=== PATIENT | male | born 1965 | race African-American/Black ===

== ENCOUNTER 2017-09-12 10:29 | Emergency (ER) | payer OTHER, MEDICARE ==
[~2017-09-12] VITALS: Ht 172.7 cm; Wt 85.0 kg
[~2017-09-12 10:29] MED LIST: DIOVAN; LIPITOR; NORVASC
[2017-09-12 11:29] LABS: BASOPHILS % 1.5 % (0.0-2.0); HEMOGLOBIN. 11.9 g/dL (14.0-18.0); LYMPHOCYTES % 19.1 % (20.0-50.0); MEAN CORPUSCULAR HEMOGLOBIN 33.8 pg (28.0-32.0); MEAN CORPUSCULAR VOLUME 96.6 fL (80.0-94.0); MEAN PLATELET VOLUME 7.6 fl (7.4-10.4); MONOCYTES % 7.3 % (2.0-8.0); NEUTROPHILS % 71.1 % (40.0-76.0); PLATELET 200 x1000/uL (130-400); RED BLOOD CELL COUNT 3.52 mill/uL (4.7-6.1)
[2017-09-12 11:40] LABS: PROTHROMBIN TIME 10.5 sec (9.4-11.6)
[2017-09-12] MEDS ORDERED: AMLODIPINE 10MG TABLET PO ONE (12:00)
[2017-09-12] MEDS ORDERED: CLONIDINE 0.2MG TABLET PO ONE (12:00)
[2017-09-12 15:51] VITALS: BP 187/117
== END 2017-09-12 16:20 | disposition short-term general hospital (02) ==
LOC: ER 11:14 → EDBEDREQ 13:06 → ER 16:20 → CANBEDREQ 17:42
DX: T82.838A Hemorrhage due to vascular prosthetic devices, implants and grafts, initial encounter (principal); Y84.1 Kidney dialysis as the cause of abnormal reaction of the patient, or of later complication, without mention of misadventure at the time of the procedure; Y92.9 Unspecified place or not applicable; I13.2 Hypertensive heart and chronic kidney disease with heart failure and with stage 5 chronic kidney disease, or end stage renal disease; I50.9 Heart failure, unspecified; N18.6 End stage renal disease; E87.1 Hypo-osmolality and hyponatremia; E87.5 Hyperkalemia; D64.9 Anemia, unspecified; I48.91 Unspecified atrial fibrillation; Z99.2 Dependence on renal dialysis
CPT/HCPCS: 36415; 80048; 85025; 85610; 99285; Z7610

== ENCOUNTER 2018-04-09 06:05 | Inpatient (IN) | payer OTHER, MEDICARE ==
[~2018-04-09] VITALS: Ht 182.9 cm; Wt 63.1 kg
[2018-04-09] MEDS ORDERED: METHYLPREDNISOLONE SOD SUCC 125 MG/2 ML VIAL IV STA (06:10)
[2018-04-09] MEDS ORDERED: IPRATROPIUM BROMIDE (0.02%) 0.5MG/2.5ML NEB HHN STA (06:10)
[2018-04-09] MEDS ORDERED: ALBUTEROL (0.083%) 2.5MG/3ML NEB HHN STA (06:10)
[2018-04-09] MEDS ORDERED: MAGNESIUM 2 G PREMIX 50 ML IV STA (06:10)
[2018-04-09] MEDS ORDERED: DILTIAZEM HCL 125 MG in DEXT 5% WATER 100 ML IV ONE (06:15)
[2018-04-09] MEDS ORDERED: NITROGLYCERIN OINT 1GM/INCH UDPKT TD ONE (06:15)
[2018-04-09] MEDS ORDERED: DILTIAZEM HCL 5MG/ML 5ML VIAL IV ONE (06:15)
[2018-04-09] MEDS ORDERED: DILTIAZEM HCL 125MG in DEXTROSE 5% WATER 125ML IV ONE (06:30)
[2018-04-09 06:49] LABS: EOSINOPHILS % 0.6 % (0.0-5.0); HEMATOCRIT. 32.3 % (42.0-52.0); HEMOGLOBIN. 10.9 g/dL (14.0-18.0); LYMPHOCYTES % 15.6 % (20.0-50.0); MEAN CORPUSCULAR HEMOGLOBIN 33.7 pg (28.0-32.0); MEAN CORPUSCULAR VOLUME 99.4 fL (80.0-94.0); MEAN PLATELET VOLUME 7.8 fl (7.4-10.4); MONOCYTES % 4.2 % (2.0-8.0); NEUTROPHILS % 78.6 % (40.0-76.0); PLATELET 271 x1000/uL (130-400); RED BLOOD CELL COUNT 3.25 mill/uL (4.7-6.1)
[2018-04-09 06:54] LABS: CHLORIDE 103 mEq/L (98-107)
[2018-04-09 06:58] LABS: ETHANOL BLOOD < 10 mg/dL
[2018-04-09 07:00] LABS: PARTIAL THROMBOPLASTIN TIME 26.1 sec (23.4-31.0); PROTHROMBIN TIME 10.3 sec (9.1-11.1)
[2018-04-09] MEDS ORDERED: ASPIRIN 300MG SUPP PR ONE (07:45)
[2018-04-09] MEDS ORDERED: LEVOFLOXACIN 500MG PREMIX 100 ML IV ONE (08:00)
[2018-04-09 08:33] LABS: BG BASE EXCESS 0.1 mmol/L (-2.0-2.0); BG BILEVEL POS AIRWAY PRESSURE 15/5; BG CARBOXYHEMOGLOBIN 1.2 % (0.5-1.5); BG DEOXYHEMOGLOBIN 1.3 % (0.0-5.0); BG FRACTION INSPIRED OXYGEN 50; BG METHEMOGLOBIN 0.3 % (0.0-1.5); BG OXYGEN SATURATION 98.7 % (92.0-98.5); BG OXYHEMOGLOBIN 97.2 % (94.0-97.0); BG PCO2 41.9 mmHg (35.0-45.0); BG PH 7.394 (7.350-7.450); BG PO2 164.6 mmHg (75.0-100.0); BG SAMPLE SITE RIGHT BRACHIAL; BG TOTAL HEMOGLOBIN 10.5 g/dL (12.0-18.0); BG VENT MODE MASK - BIPAP
[2018-04-09] MEDS ORDERED: SODIUM BICARBONATE 4% (2.4MEQ) 5ML VIAL IV ONE (11:18)
[2018-04-09] MEDS ORDERED: LIDOCAINE HCL 1% 20ML VIAL (Pyxis) INJ ONE (11:18)
[2018-04-09] MEDS ORDERED: AZITHROMYCIN 500 MG TABLET PO NR (11:30)
[2018-04-09] MEDS ORDERED: LABETALOL HCL 20MG/4ML CARPUJECT IV NR (11:30)
[2018-04-09] MEDS ORDERED: NIFEDIPINE XL 60MG TAB PO NR (12:15)
[2018-04-09] MEDS ORDERED: LOSARTAN POTASSIUM 100 MG TABLET PO NR (12:15)
[2018-04-09 17:28] VITALS: BP 173/98
[2018-04-09] MEDS ORDERED: IPRATROPIUM/ALBUTEROL 0.5-3(2.5)MG/3ML NEB HHN PRN (17:44)
[2018-04-09] MEDS ORDERED: ONDANSETRON HCL 4MG/2ML INJ IV PRN (17:45)
[2018-04-09] MEDS ORDERED: BENZONATATE 100MG CAPSULE PO PRN (17:45)
[2018-04-09] MEDS ORDERED: ACETAMINOPHEN 325MG TABLET PO PRN (17:46)
[2018-04-09 18:00] VITALS: BP 187/111
[2018-04-09 20:00] VITALS: BP 160/85
[2018-04-09 21:00] VITALS: BP 170/88
[2018-04-09] MEDS ORDERED: NIFEDIPINE XL 60MG TAB PO SCH (21:00)
[2018-04-09] MEDS: LOSARTAN POTASSIUM 100 MG TABLET PO SCH (21:44)
[2018-04-09] MEDS: CLONIDINE 0.1MG TABLET PO PRN (21:45)
[2018-04-09 22:00] VITALS: BP 186/117
[2018-04-09 23:00] VITALS: BP 139/91
[2018-04-09] MEDS: DILTIAZEM HCL 125 MG in DEXT 5% WATER 100 ML IV SCH (23:01)
[2018-04-09] MEDS: NICOTINE 14MG PATCH TD SCH (23:11)
[2018-04-10] VITALS (13 sets, daily range): BP systolic 118–183; BP diastolic 62–104
[2018-04-10] MEDS: IPRATROPIUM BROMIDE (0.02%) 0.5MG/2.5ML NEB HHN SCH ×4 (00:13→21:23)
[2018-04-10] MEDS: BUDESONIDE 0.5MG/2ML NEB HHN SCH ×3 (00:13→21:22)
[2018-04-10] MEDS: DILTIAZEM HCL 125 MG in DEXT 5% WATER 100 ML IV SCH ×2 (06:13→16:28)
[2018-04-10 07:08] LABS: BASOPHILS % 0.3 % (0.0-2.0); HEMATOCRIT. 28.2 % (42.0-52.0); HEMOGLOBIN. 9.8 g/dL (14.0-18.0); LYMPHOCYTES % 8.1 % (20.0-50.0); MEAN CORPUSCULAR HEMOGLOBIN 34.1 pg (28.0-32.0); MEAN CORPUSCULAR VOLUME 97.9 fL (80.0-94.0); MONOCYTES % 6.6 % (2.0-8.0); PLATELET 239 x1000/uL (130-400); RED BLOOD CELL COUNT 2.88 mill/uL (4.7-6.1); RED CELL DISTRIBUTION WIDTH 13.3 % (11.6-14.6)
[2018-04-10 07:53] LABS: PHOSPHORUS 5.8 mg/dL (2.5-4.9)
[2018-04-10] MEDS ORDERED: NICOTINE 14MG PATCH TD SCH (09:00)
[2018-04-10] MEDS: FOLIC ACID/VITAMIN B COMP W-C TABLET PO SCH (09:35)
[2018-04-10] MEDS: AZITHROMYCIN 250 MG TABLET PO SCH (09:36)
[2018-04-10] MEDS: NICOTINE 14MG PATCH TD SCH (09:36)
[2018-04-10] MEDS ORDERED: SEVELAMER CARBONATE 800 MG TABLET PO SCH (12:20)
[2018-04-10] MEDS: SEVELAMER CARBONATE 800 MG TABLET PO SCH ×2 (13:15→17:21)
[2018-04-10] MEDS ORDERED: CINACALCET HCL 30MG TABLET PO SCH (20:00)
[2018-04-10] MEDS ORDERED: EPOETIN ALFA 4000UNITS/ML VIAL SUBCUT SCH (21:00)
[2018-04-11] VITALS (11 sets, daily range): BP systolic 129–183; BP diastolic 82–100
[2018-04-11] MEDS: CLONIDINE 0.1MG TABLET PO PRN (00:02)
[2018-04-11] MEDS: IPRATROPIUM BROMIDE (0.02%) 0.5MG/2.5ML NEB HHN SCH ×3 (01:10→16:28)
[2018-04-11] MEDS: DILTIAZEM HCL 125 MG in DEXT 5% WATER 100 ML IV SCH ×3 (01:54→14:43)
[2018-04-11 07:18] LABS: BASOPHILS % 0.9 % (0.0-2.0); EOSINOPHILS % 1.3 % (0.0-5.0); HEMATOCRIT. 29.8 % (42.0-52.0); HEMOGLOBIN. 10.4 g/dL (14.0-18.0); LYMPHOCYTES % 13.5 % (20.0-50.0); MEAN CORPUSCULAR HEMOGLOBIN 33.7 pg (28.0-32.0); MEAN CORPUSCULAR VOLUME 96.9 fL (80.0-94.0); MONOCYTES % 7.4 % (2.0-8.0); NEUTROPHILS % 76.9 % (40.0-76.0); PLATELET 248 x1000/uL (130-400); RED BLOOD CELL COUNT 3.08 mill/uL (4.7-6.1); RED CELL DISTRIBUTION WIDTH 13.7 % (11.6-14.6)
[2018-04-11] MEDS: BUDESONIDE 0.5MG/2ML NEB HHN SCH (08:03)
[2018-04-11] MEDS: SEVELAMER CARBONATE 800 MG TABLET PO SCH ×3 (08:14→17:34)
[2018-04-11] MEDS: FOLIC ACID/VITAMIN B COMP W-C TABLET PO SCH (08:17)
[2018-04-11] MEDS: NICOTINE 14MG PATCH TD SCH (08:17)
[2018-04-11] MEDS: AZITHROMYCIN 250 MG TABLET PO SCH (08:18)
[2018-04-11] MEDS: LOSARTAN POTASSIUM 100 MG TABLET PO SCH (08:18)
[2018-04-11 08:49] LABS: METHADONE URINE SCREEN NEGATIVE (NEGATIVE); OPIATES URINE SCREEN NEGATIVE (NEGATIVE)
[2018-04-11 08:50] LABS: *AMPHETAMINES SCREEN URINE NEGATIVE (NEGATIVE); *BARBITURATES SCREEN URINE NEGATIVE (NEGATIVE); *BENZODIAZEPINES SCREEN URINE NEGATIVE (NEGATIVE); *COCAINE SCREEN URINE NEGATIVE (NEGATIVE); CANNABINOID URINE SCREEN NEGATIVE (NEGATIVE); PHENCYCLIDINE URINE SCREEN NEGATIVE (NEGATIVE)
[2018-04-11 09:11] LABS: CREATINE KINASE MB FRACTION 2.3 ng/mL (0.5-3.6)
[2018-04-11] MEDS ORDERED: DILTIAZEM HCL 180MG CAPSULE CD 24HR PO SCH (11:00)
[2018-04-11] MEDS ORDERED: CLONIDINE 0.1MG TABLET PO NR (13:15)
[2018-04-11] MEDS ORDERED: CLONIDINE 0.2MG TABLET PO SCH (14:00)
[2018-04-11] MEDS ORDERED: HYDRALAZINE HCL 100MG TABLET PO SCH (14:00)
[2018-04-12] MEDS ORDERED: CLONIDINE 0.2MG TABLET PO SCH (09:00)
== END 2018-04-11 18:45 | disposition home or self-care (01) | DRG 291 ==
LOC: ER 06:05 → EDBEDREQ 07:02 → EDBEDREQTM 07:02 → EDBEDREQSVC 07:02 → ENRESERV 15:38 → 3WST 17:05
PROVIDERS: ADMIT Internal Medicine; ATTEND Internal Medicine
PROC: 02HV33Z Insertion of Infusion Device into Superior Vena Cava, Percutaneous Approach (ICD-10-PCS; principal; 2018-04-09)
PROC: B548ZZA Ultrasonography of Superior Vena Cava, Guidance (ICD-10-PCS; 2018-04-09)
PROC: 5A09357 Assistance with Respiratory Ventilation, Less than 24 Consecutive Hours, Continuous Positive Airway Pressure (ICD-10-PCS; 2018-04-09)
PROC: 5A1D70Z Performance of Urinary Filtration, Intermittent, Less than 6 Hours Per Day (ICD-10-PCS; 2018-04-09)
PROC: 5A1D70Z Performance of Urinary Filtration, Intermittent, Less than 6 Hours Per Day (ICD-10-PCS; 2018-04-10)
PROC: 5A1D70Z Performance of Urinary Filtration, Intermittent, Less than 6 Hours Per Day (ICD-10-PCS; 2018-04-11)
DX: I13.2 Hypertensive heart and chronic kidney disease with heart failure and with stage 5 chronic kidney disease, or end stage renal disease (principal); I50.43 Acute on chronic combined systolic (congestive) and diastolic (congestive) heart failure; J96.01 Acute respiratory failure with hypoxia; N18.6 End stage renal disease; I47.1 Supraventricular tachycardia; I48.92 Unspecified atrial flutter; J84.9 Interstitial pulmonary disease, unspecified; N25.81 Secondary hyperparathyroidism of renal origin; I16.1 Hypertensive emergency; I27.20 Pulmonary hypertension, unspecified; I42.9 Cardiomyopathy, unspecified; D63.8 Anemia in other chronic diseases classified elsewhere; E11.22 Type 2 diabetes mellitus with diabetic chronic kidney disease; D72.829 Elevated white blood cell count, unspecified; E78.5 Hyperlipidemia, unspecified; F17.210 Nicotine dependence, cigarettes, uncomplicated; J44.9 Chronic obstructive pulmonary disease, unspecified; Z80.8 Family history of malignant neoplasm of other organs or systems; Z86.73 Personal history of transient ischemic attack (TIA), and cerebral infarction without residual deficits; Z99.2 Dependence on renal dialysis; Z82.49 Family history of ischemic heart disease and other diseases of the circulatory system; Z71.6 Tobacco abuse counseling
CPT/HCPCS: 36415; 36569; 36600; 71045; 76937; 80048; 80305; 82375; 82550; 82553; 82805; 83605; 83735; 84100; 84145; 84484; 86850; 86900; 93005; 93306; 93970; 94640; 94660; 96365; 96375; 99291; C1725; G0482; J0885; J1956; J2930; J3475; J3490; J7050; J7060; J7611; J7626

== ENCOUNTER 2021-06-22 12:54 | Inpatient (IN) | payer MEDICARE, OTHER ==
[~2021-06-22] VITALS: Ht 182.9 cm; Wt 82.3 kg
[2021-06-22 13:57] LABS: HEMATOCRIT 38.4 % (42.0-52.0); HEMOGLOBIN 13.5 g/dL (14.0-18.0); MEAN CORPUSCULAR HEMOGLOBIN 35.5 pg (28.0-32.0); MEAN CORPUSCULAR VOLUME 100.7 fL (80.0-94.0); PLATELET 169 x1000/uL (130-400); RED BLOOD CELL COUNT 3.82 mill/uL (4.7-6.1); RED CELL DISTRIBUTION WIDTH 14.7 % (11.6-14.6)
[2021-06-22] MEDS ORDERED: CALCIUM GLUCONATE 100MG/ML 10ML VIAL IV ONE (14:00)
[2021-06-22] MEDS ORDERED: ONDANSETRON HCL 4MG/2ML INJ IV ONE (14:15)
[2021-06-22] MEDS ORDERED: ALBUTEROL (0.083%) 2.5MG/3ML NEB HHN ONE (14:30)
[2021-06-22] MEDS ORDERED: DEXTROSE 50% WATER 50ML SYRINGE IV ONE ×2 (14:30)
[2021-06-22] MEDS ORDERED: INSULIN REGULAR (HUMULIN R) 300UNITS/3ML VIAL IV ONE (14:30)
[2021-06-22] MEDS ORDERED: SODIUM BICARBONATE 8.4% 1 MEQ/ML 50ML SYR IV ONE (14:30)
[2021-06-22] MEDS ORDERED: ASPIRIN 325MG EC TABLET PO ONE (16:15)
[2021-06-22 18:33] VITALS: BP 188/97
[2021-06-22 18:36] VITALS: BP 184/134
[2021-06-22 18:40] VITALS: BP 150/101
[2021-06-22] MEDS ORDERED: REN800 PO (19:25)
[2021-06-22] MEDS ORDERED: CLON0.2T PO (19:25)
[2021-06-22] MEDS ORDERED: FURO80TA3 PO (19:25)
[2021-06-22] MEDS ORDERED: METO-539 PO (19:25)
[2021-06-22] MEDS ORDERED: ATOR20TA65 PO (19:25)
[2021-06-22] MEDS ORDERED: TIOT4MIS2 IH (19:25)
[2021-06-22] MEDS ORDERED: SILD20TA PO (19:25)
[2021-06-22] MEDS ORDERED: DILT60TA3 PO (19:25)
[2021-06-22] MEDS ORDERED: CINA60TA3 PO (19:25)
[2021-06-22 19:38] VITALS: BP 151/110
[2021-06-22 19:39] VITALS: BP 170/114
[2021-06-22] MEDS ORDERED: ACETAMINOPHEN 325MG TABLET PO PRN ×2 (20:45)
[2021-06-22] MEDS ORDERED: ONDANSETRON HCL 4MG/2ML INJ IV PRN (20:45)
[2021-06-22] MEDS ORDERED: ZOLPIDEM TARTRATE 5MG TABLET PO PRN (20:45)
[2021-06-22] MEDS ORDERED: GUAIFENESIN 200MG/10ML SUGAR FREE UDC PO PRN (20:45)
[2021-06-22] MEDS ORDERED: MAGNESIUM/ALUMINUM HYDROXIDE/SIMETHICONE 30ML UDC PO PRN (20:45)
[2021-06-22] MEDS ORDERED: DIPHENHYDRAMINE 50MG/ML VIAL IV PRN (20:45)
[2021-06-22] MEDS ORDERED: CLONIDINE 0.2MG TABLET PO PRN (20:45)
[2021-06-22] MEDS ORDERED: ATORVASTATIN CALCIUM 20MG TABLET PO SCH (21:00)
[2021-06-22 22:00] VITALS: BP 154/95
[2021-06-22] MEDS: SODIUM CHLORIDE 0.9% INJ 3ML FLUSH IVF SCH (22:14)
[2021-06-23] VITALS (10 sets, daily range): BP systolic 126–168; BP diastolic 71–96
[2021-06-23] MEDS: SODIUM CHLORIDE 0.9% INJ 3ML FLUSH IVF SCH ×2 (05:52→14:00)
[2021-06-23] MEDS: DILTIAZEM HCL 60MG TABLET PO SCH ×2 (08:10→17:29)
[2021-06-23] MEDS: METOPROLOL TARTRATE 50MG TABLET PO SCH ×2 (08:10→17:29)
[2021-06-23] MEDS ORDERED: CINACALCET HCL 30MG TABLET PO SCH (09:00)
[2021-06-23] MEDS ORDERED: METOPROLOL SUCCINATE 50MG ER TABLET PO SCH (09:00)
[2021-06-23] MEDS: CLONIDINE 0.2MG TABLET PO SCH ×2 (11:45→17:29)
[2021-06-24 21:55] LABS: HEPATITIS B SURFACE ANTIGEN NEGATIVE
== END 2021-06-23 17:50 | disposition home or self-care (01) | DRG 640 ==
LOC: ER 12:54 → 3WST 16:18 → EDBEDREQTM 16:21 → EDBEDREQ 16:21 → EDBEDREQSVC 16:21 → ENRESERV 17:18
PROVIDERS: ADMIT Internal Medicine; ATTEND Internal Medicine
PROC: 5A1D70Z Performance of Urinary Filtration, Intermittent, Less than 6 Hours Per Day (ICD-10-PCS; principal; 2021-06-22)
DX: E87.5 Hyperkalemia (principal); I50.23 Acute on chronic systolic (congestive) heart failure; N18.6 End stage renal disease; I13.2 Hypertensive heart and chronic kidney disease with heart failure and with stage 5 chronic kidney disease, or end stage renal disease; I48.20 Chronic atrial fibrillation, unspecified; Z20.822 Contact with and (suspected) exposure to COVID-19; J44.9 Chronic obstructive pulmonary disease, unspecified; R00.1 Bradycardia, unspecified; E78.5 Hyperlipidemia, unspecified; Z99.2 Dependence on renal dialysis
CPT/HCPCS: 36415; 71045; 80048; 82962; 84484; 85027; 86705; 86709; 86803; 87340; 87426; 93005; 99291; J0610; J1815; J2405; J3490

== ENCOUNTER 2021-06-23 21:22 | Inpatient (IN) | payer MEDICARE, OTHER ==
[~2021-06-23] VITALS: Ht 182.9 cm; Wt 76.2 kg
[~2021-06-23 21:22] MED LIST changes: +ATOR20TA65 PO; +CINA60TA3 PO; +CLON0.2T PO; +DILT60TA3 PO; +FURO80TA3 PO; +METO-539 PO; +REN800 PO; +SILD20TA PO; +TIOT4MIS2 IH
[2021-06-23] MEDS ORDERED: ALBUTEROL (0.083%) 2.5MG/3ML NEB HHN STA (22:31)
[2021-06-23] MEDS ORDERED: CALCIUM CHLORIDE 1GM/10ML SYR IV ONE ×2 (22:45→23:00)
[2021-06-23] MEDS ORDERED: INSULIN REGULAR (HUMULIN R) 300UNITS/3ML VIAL IV ONE (22:45)
[2021-06-23] MEDS ORDERED: DEXTROSE 50% WATER 50ML SYRINGE IV ONE (22:45)
[2021-06-23] MEDS ORDERED: SODIUM BICARBONATE 8.4% 1 MEQ/ML 50ML SYR IV ONE ×2 (22:45)
[2021-06-23 22:50] LABS: BASOPHILS % 0.9 % (0.0-2.0); EOSINOPHILS % 0.5 % (0.0-5.0); HEMATOCRIT. 47.1 % (42.0-52.0); HEMOGLOBIN. 15.6 g/dL (14.0-18.0); LYMPHOCYTES % 18.8 % (20.0-50.0); MEAN CORPUSCULAR VOLUME 102.7 fL (80.0-94.0); MEAN PLATELET VOLUME 8.9 fl (7.4-10.4); MONOCYTES % 6.7 % (2.0-8.0); NEUTROPHILS % 73.1 % (40.0-76.0); PLATELET 152 x1000/uL (130-400); RED BLOOD CELL COUNT 4.59 mill/uL (4.7-6.1)
[2021-06-23 22:51] LABS: CHLORIDE 99 mEq/L (98-107)
[2021-06-23] MEDS ORDERED: SODIUM BICARBONATE 150 MEQ in DEXTROSE 5% WATER 1,000 ML IV STA (22:59)
[2021-06-24] VITALS (7 sets, daily range): BP systolic 133–157; BP diastolic 67–90
[2021-06-24] MEDS ORDERED: ONDANSETRON HCL 4MG/2ML INJ IV PRN (01:45)
[2021-06-24] MEDS ORDERED: MAGNESIUM/ALUMINUM HYDROXIDE/SIMETHICONE 30ML UDC PO PRN (01:45)
[2021-06-24] MEDS ORDERED: DIPHENHYDRAMINE 50MG/ML VIAL IV PRN (01:45)
[2021-06-24] MEDS ORDERED: IPRATROPIUM/ALBUTEROL 0.5-3(2.5)MG/3ML NEB HHN PRN (01:45)
[2021-06-24] MEDS ORDERED: ACETAMINOPHEN 325MG TABLET PO PRN ×2 (01:45)
[2021-06-24] MEDS ORDERED: ZOLPIDEM TARTRATE 5MG TABLET PO PRN (01:45)
[2021-06-24] MEDS: SODIUM CHLORIDE 0.9% INJ 3ML FLUSH IVF SCH ×3 (06:11→21:24)
[2021-06-24] MEDS ORDERED: CINACALCET HCL 60MG TABLET PO SCH (09:00)
[2021-06-24] MEDS: CINACALCET HCL 60MG TABLET PO SCH (15:25)
[2021-06-24 18:06] LABS: HEPATITIS B SURFACE ANTIGEN NEGATIVE
[2021-06-24] MEDS: ATORVASTATIN CALCIUM 20MG TABLET PO SCH (21:24)
[2021-06-25] VITALS (12 sets, daily range): BP systolic 133–157; BP diastolic 68–124
[2021-06-25] MEDS: SODIUM CHLORIDE 0.9% INJ 3ML FLUSH IVF SCH ×3 (06:04→20:34)
[2021-06-25] MEDS: CINACALCET HCL 60MG TABLET PO SCH (08:55)
[2021-06-25 09:31] LABS: EOSINOPHILS % 1.2 % (0.0-5.0); HEMATOCRIT. 38.5 % (42.0-52.0); HEMOGLOBIN. 12.9 g/dL (14.0-18.0); LYMPHOCYTES % 12.8 % (20.0-50.0); MEAN CORPUSCULAR HEMOGLOBIN 33.8 pg (28.0-32.0); MEAN CORPUSCULAR VOLUME 100.7 fL (80.0-94.0); MEAN PLATELET VOLUME 9.2 fl (7.4-10.4); MONOCYTES % 9.1 % (2.0-8.0); NEUTROPHILS % 75.9 % (40.0-76.0); PLATELET 154 x1000/uL (130-400); RED BLOOD CELL COUNT 3.83 mill/uL (4.7-6.1); RED CELL DISTRIBUTION WIDTH 14.6 % (11.6-14.6)
[2021-06-25] MEDS ORDERED: LOPERAMIDE HCL 2MG CAPSULE PO SCH (11:00)
[2021-06-25] MEDS: HYDRALAZINE 20MG/ML VIAL IV PRN (13:54)
[2021-06-25] MEDS ORDERED: ENOXAPARIN 30MG/0.3ML SYR SUBCUT SCH (14:00)
[2021-06-25] MEDS: METOPROLOL TARTRATE 50MG TABLET PO SCH (15:35)
[2021-06-25] MEDS: ATORVASTATIN CALCIUM 20MG TABLET PO SCH (20:34)
[2021-06-26] VITALS (10 sets, daily range): BP systolic 136–166; BP diastolic 67–110
[2021-06-26] MEDS: METOPROLOL TARTRATE 50MG TABLET PO SCH ×2 (00:16→06:44)
[2021-06-26] MEDS: SODIUM CHLORIDE 0.9% INJ 3ML FLUSH IVF SCH ×2 (06:21→14:37)
[2021-06-26] MEDS: CINACALCET HCL 60MG TABLET PO SCH (08:58)
[2021-06-26] MEDS ORDERED: ENOXAPARIN 30MG/0.3ML SYR SUBCUT SCH (09:00)
[2021-06-26] MEDS ORDERED: CLONIDINE 0.2MG TABLET PO SCH (10:30)
[2021-06-26] MEDS: HYDRALAZINE 20MG/ML VIAL IV PRN (15:06)
== END 2021-06-26 16:58 | disposition home or self-care (01) | DRG 308 ==
LOC: ER 21:22 → MICUSO 23:02 → 3WST 06-24 09:12 → ENRESERV 06-24 13:00
PROVIDERS: ADMIT Internal Medicine; ATTEND Internal Medicine
PROC: 5A1D70Z Performance of Urinary Filtration, Intermittent, Less than 6 Hours Per Day (ICD-10-PCS; principal; 2021-06-24)
PROC: 5A1D70Z Performance of Urinary Filtration, Intermittent, Less than 6 Hours Per Day (ICD-10-PCS; 2021-06-26)
DX: R00.1 Bradycardia, unspecified (principal); N18.6 End stage renal disease; I13.2 Hypertensive heart and chronic kidney disease with heart failure and with stage 5 chronic kidney disease, or end stage renal disease; I50.22 Chronic systolic (congestive) heart failure; E87.5 Hyperkalemia; I48.20 Chronic atrial fibrillation, unspecified; E78.5 Hyperlipidemia, unspecified; Z20.822 Contact with and (suspected) exposure to COVID-19; J44.9 Chronic obstructive pulmonary disease, unspecified; Z99.2 Dependence on renal dialysis; Z79.899 Other long term (current) drug therapy; T50.905A Adverse effect of unspecified drugs, medicaments and biological substances, initial encounter
CPT/HCPCS: 36415; 71045; 80048; 80053; 82962; 83605; 84484; 85025; 86705; 86709; 86803; 86850; 86900; 87340; 87426; 93005; 94640; 99291; J0360; J1650; J1815; J3490; J7070